=== PATIENT | female | born 1945 | race Caucasian/White ===

== ENCOUNTER 2016-12-18 12:21 | Inpatient (IN) | payer OTHER ==
[~2016-12-18] VITALS: Ht 160 cm; Wt 112.4 kg
[~2016-12-18 12:21] MED LIST: ACID CONTROL150 MG PO; ALDACTONE25 MG PO; ALLOPURINOL300 MG PO; ALPRAZOLAM0.25 M2 PO; ANUSOL-HC21 GM PR; ASPIR-LOW81 MG PO; BENTYL10 MG PO; BISOPROLOL FUMA10 MG PO; CALCIUM 600 +1 EAC2 PO; CIPRO HC OTIC S10 ML LEFT EAR; CLINDAMYCIN HC300 MG PO; CYCLOBENZAPRINE10 MG PO; DILAUDID2 MG PO; DOCUSATE SODIU100 MG PO; FUROSEMIDE20 MG PO; GLUCOPHAGE1000 MG PO; IBUPROFEN800 MG PO; LACTULOSE10 GM/151 PO; LANTUS 3 M100 UNITS1 SC; LASIX20 MG PO; LOVENOX40 MG/0.4 SC; NOVOLOG PE100 UNITS/ SC; OMEPRAZOLE40 M1 PO; OSTERA TABLET1 EACH PO; PEDIADERM TA 0115 GM TP; REQUIP1 MG PO; SELENIUM200 MC3 PO; SERTRALINE HCL100 MG PO; SYNTHROID100 MCG PO; THERA-TABS1 EACH PO; Tums,OsCal PO
[2016-12-18 13:35] LABS: HEMATOCRIT 31.3 % (36.0-46.0); MCH 27.3 PG (29.0-34.0); MCHC 31.6 G/DL (30.0-36.0); MCV 86.5 FL (83-99); MEAN PLAT.VOLUME 12.6 uM^3 (9.5-12.4); PLATELET COUNT 128 K/uL (156-360); RBC DIS.WIDTH-CV 16.4 % (11.8-14.6); RBC DIS.WIDTH-SD 50.4 % (39-53); RED BLOOD COUNT 3.62 M/uL (3.80-5.20); WHITE BLOOD COUNT 5.6 K/uL (4.1-10.2)
[2016-12-18 13:36] LABS: ADD MIUA? YES; BILIRUBIN SMALL; BLOOD NEGATIVE; COLOR DK YELLOW ((YELLOW)); GLUCOSE (STRIP) NEGATIVE; KETONES NEGATIVE; LEUKOCYTES TRACE; NITRITE NEGATIVE; PH, URINE 5.5 (5-8); PROTEIN (STRIP) NEGATIVE; SPECIFIC GRAVITY 1.018 (1.000-1.030)
[2016-12-18 13:41] LABS: CHLORIDE 108 mEq/L (99-109); POTASSIUM 3.8 mEq/L (3.7-5.4); SODIUM 141 mEq/L (136-147)
[2016-12-18 13:43] LABS: GLUCOSE 123 mg/dL (70-99)
[2016-12-18 13:44] LABS: ANION GAP 11 MEQ/L (2-14)
[2016-12-18 13:45] LABS: TOTAL BILIRUBIN 1.1 mg/dL (0.0-1.0)
[2016-12-18 13:46] LABS: ALKALINE PHOSPHATASE 254 IU/L (3-129)
[2016-12-18 13:47] LABS: GFR ESTIMATE (CALCULATED) 52 mL/min/
[2016-12-18 13:48] LABS: UREA NITROGEN (BUN) 24 mg/dL (9-23)
[2016-12-18 13:51] LABS: TROP-I INTERPRETATION NEGATIVE; TROPONIN-I < 0.01 ng/mL (0.0-0.30)
[2016-12-18 14:30] LABS: RED BLOOD CELLS 0-5 /HPF (0-5)
[2016-12-18 14:31] LABS: BACTERIA 1+ /HPF; CASTS PRESENT /LPF; CRYSTALS PRESENT; EPITHELIAL CELLS 1+ /HPF; MUCUS NONE SEEN /LPF; UCUL ADDED? NO; WHITE CELL CASTS 0-5 /LPF
[2016-12-18 14:32] LABS: HYALINE CASTS 0-5 /LPF; URIC ACID CRYSTALS 2+ /HPF
[2016-12-18] MEDS ORDERED: MACROBID100 MG PO (16:25)
[2016-12-18] MEDS ORDERED: REQUIP2 MG PO (17:52)
[2016-12-18] MEDS ORDERED: LEVEMIR100 UNIT/2 SC (17:53)
[2016-12-18] MEDS ORDERED: ERGOCALCIF50000 UNIT PO (17:54)
[2016-12-18] MEDS ORDERED: APRESOLINE10 MG PO (17:54)
[2016-12-18] MEDS ORDERED: KEFLEX500 MG PO (17:55)
[2016-12-18] MEDS ORDERED: MOTRIN800 MG PO (17:56)
[2016-12-18] MEDS ORDERED: PROLIA60 MG/1 ML SC (17:56)
[2016-12-18] MEDS ORDERED: FLEXERIL10 MG PO (17:56)
[2016-12-18 22:01] VITALS: BP 150/59
[2016-12-18 22:44] VITALS: BP 150/59
[2016-12-18 22:54] LABS: POINT-OF-CARE USER ID BHSKTD
[2016-12-19 03:50] VITALS: BP 139/67
[2016-12-19 06:15] LABS: HEMATOCRIT 30.8 % (36.0-46.0); MCH 27.4 PG (29.0-34.0); MCHC 31.5 G/DL (30.0-36.0); MEAN PLAT.VOLUME 12.4 uM^3 (9.5-12.4); PLATELET COUNT 126 K/uL (156-360); RBC DIS.WIDTH-CV 16.5 % (11.8-14.6); RBC DIS.WIDTH-SD 52.7 % (39-53); RED BLOOD COUNT 3.54 M/uL (3.80-5.20)
[2016-12-19 06:46] LABS: ALKALINE PHOSPHATASE 228 IU/L (3-129); ANION GAP 9 MEQ/L (2-14); CHLORIDE 107 MEQ/L (99-109); GFR ESTIMATE (CALCULATED) > 59 mL/min/; GLUCOSE 115 mg/dL (70-99); POTASSIUM 3.6 MEQ/L (3.7-5.4); SAMPLE HEMOLYSIS CHECK 0; SAMPLE ICTERIC CHECK 0; SAMPLE LIPEMIA CHECK 0; SODIUM 143 MEQ/L (136-147); TOTAL BILIRUBIN 0.9 MG/DL (0.0-1.0); UREA NITROGEN (BUN) 18 mg/dL (9-23)
[2016-12-19 07:42] VITALS: BP 154/70
[2016-12-19 11:57] VITALS: BP 148/66
[2016-12-19 16:03] VITALS: BP 152/70
[2016-12-19 19:24] VITALS: BP 132/67
[2016-12-20] VITALS: BP 142/66
[2016-12-20 03:46] VITALS: BP 136/65
[2016-12-20 06:53] LABS: EOSINOPHIL (%) 3.9 % (0-5); EOSINOPHIL COUNT 0.2 K/uL (0-0.3); HEMATOCRIT 32.6 % (36.0-46.0); IMMATURE GRANULOCYTE (%) 0.2 % (0.0-0.7); LYMPHOCYTE COUNT 1.4 K/uL (1.0-2.8); MCH 27.4 PG (29.0-34.0); MCHC 31.3 G/DL (30.0-36.0); MCV 87.6 FL (83-99); MEAN PLAT.VOLUME 12.4 uM^3 (9.5-12.4); MONOCYTE (%) 13.2 % (3-12); MONOCYTE COUNT 0.7 K/uL (0-0.8); NEUTROPHIL (%) 57.8 % (45-76); NEUTROPHIL COUNT 3.2 K/uL (1.8-6.4); PLATELET COUNT 134 K/uL (156-360); RBC DIS.WIDTH-CV 16.8 % (11.8-14.6); RBC DIS.WIDTH-SD 53.4 % (39-53); RED BLOOD COUNT 3.72 M/uL (3.80-5.20)
[2016-12-20 06:54] LABS: WHITE BLOOD COUNT 5.6 K/uL (4.1-10.2)
[2016-12-20 07:12] LABS: ALKALINE PHOSPHATASE 231 IU/L (3-129); ANION GAP 10 MEQ/L (2-14); CHLORIDE 104 MEQ/L (99-109); GFR ESTIMATE (CALCULATED) > 59 mL/min/; POTASSIUM 3.4 MEQ/L (3.7-5.4); SAMPLE HEMOLYSIS CHECK 0; SAMPLE ICTERIC CHECK 0; SAMPLE LIPEMIA CHECK 0; SODIUM 140 MEQ/L (136-147); TOTAL BILIRUBIN 0.9 MG/DL (0.0-1.0); UREA NITROGEN (BUN) 16 mg/dL (9-23)
[2016-12-20 07:22] LABS: GLUCOSE 83 mg/dL (70-99)
[2016-12-20 07:53] VITALS: BP 135/67
[2016-12-20 11:29] VITALS: BP 150/66
[2016-12-20 15:46] VITALS: BP 143/64
[2016-12-20 19:32] VITALS: BP 126/57
[2016-12-21] VITALS: BP 174/74
[2016-12-21 04:00] VITALS: BP 145/62
[2016-12-21 07:40] VITALS: BP 143/67
[2016-12-21 09:11] LABS: HEMATOCRIT 33.2 % (36.0-46.0); MCH 27.7 PG (29.0-34.0); MCHC 31.3 G/DL (30.0-36.0); MCV 88.3 FL (83-99); MEAN PLAT.VOLUME 12.4 uM^3 (9.5-12.4); PLATELET COUNT 153 K/uL (156-360); RBC DIS.WIDTH-SD 54.4 % (39-53); RED BLOOD COUNT 3.76 M/uL (3.80-5.20); WHITE BLOOD COUNT 6.8 K/uL (4.1-10.2)
[2016-12-21 09:44] LABS: ANION GAP 9 MEQ/L (2-14); CHLORIDE 100 MEQ/L (99-109); GFR ESTIMATE (CALCULATED) > 59 mL/min/; GLUCOSE 69 mg/dL (70-99); POTASSIUM 3.5 MEQ/L (3.7-5.4); SAMPLE HEMOLYSIS CHECK 0; SAMPLE ICTERIC CHECK 0; SAMPLE LIPEMIA CHECK 0; SODIUM 136 MEQ/L (136-147); UREA NITROGEN (BUN) 13 mg/dL (9-23)
[2016-12-21] MEDS ORDERED: KEFLEX500 MG PO (10:35)
[2016-12-21] MEDS ORDERED: LACTULOSE10 GM/151 PO (10:35)
[2016-12-21 11:05] VITALS: BP 136/71
== END 2016-12-21 12:34 | disposition home health service (06) | DRG 442 ==
LOC: EME 12:21 → EDOF 19:01 → 5SOUTH 19:01
PROVIDERS: Emergency Medicine; Hospitalist
DX: K72.90 Hepatic failure, unspecified without coma (principal); L03.115 Cellulitis of right lower limb; L03.116 Cellulitis of left lower limb; K74.60 Unspecified cirrhosis of liver; K75.9 Inflammatory liver disease, unspecified; E66.01 Morbid (severe) obesity due to excess calories; Z68.41 Body mass index [BMI] 40.0-44.9, adult; I89.0 Lymphedema, not elsewhere classified; E11.65 Type 2 diabetes mellitus with hyperglycemia; I87.8 Other specified disorders of veins; I10 Essential (primary) hypertension; I25.10 Atherosclerotic heart disease of native coronary artery without angina pectoris; E03.9 Hypothyroidism, unspecified; E78.5 Hyperlipidemia, unspecified
CPT/HCPCS: 70450; 71250; 73502; 73552; 80048; 80053; 81003; 82140; 82948; 84484; 85025; 85027; 87040; 93005; 93970; 99281; 99285; J0690; J1644; J1940